=== PATIENT | male | born 1955 | race Caucasian/White ===

== ENCOUNTER → 2020-08-24 10:56 | Outpatient (CLI) | payer MEDICARE, SELFPAY ==
[2020-08-24 19:41] LABS: Add Manual Diff / Slide Review NO; Basophils Absolute Auto 0 /uL (0-100); Basophils Percent Auto 0.5 % (0-2); Eosinophils Absolute Auto 100 /uL (0-450); Eosinophils Percent Auto 1.8 % (2-4); Hematocrit 38.8 % (41-53); Hemoglobin 13.3 g/dL (13.5-17.5); Lymphocytes Absolute Auto 1400 /uL (1100-4500); Mean Corpuscular HGB Conc 34.3 % (30-36); Mean Corpuscular Hemoglobin 29.9 PG (26-34); Mean Corpuscular Volume 87.2 fL (80-100); Monocytes Absolute Auto 700 /uL (0-900); Monocytes Percent Auto 9.8 % (3-14); Neutrophils Absolute Auto 4600 /uL (1500-7000); Neutrophils Percent Auto 66.9 % (50-75); Platelet Count 145 X10^3/uL (150-400); Red Blood Cell Count 4.45 X10^6/uL (4.5-5.9); Red Cell Distribution Width 13.3 % (11.6-14.8); White Blood Cell Count 6.8 X10^3/uL (4.5-11.0)
[2020-08-24 20:08] LABS: Alanine Aminotransferase 22 IU/L (<50); Albumin 4.1 g/dL (3.5-5.0); Albumin Globulin Ratio 1.4 (1.0-2.8); Alkaline Phosphatase 59 U/L (38-126); Aspartate Aminotransferase 37 IU/L (17-59); BUN Creatinine Ratio 15.1 (6-22); Bilirubin Total 1.1 mg/dL (0.2-1.3); Blood Urea Nitrogen 16 mg/dL (9-20); Calcium 9.2 mg/dL (8.4-10.2); Carbon Dioxide 24 mmol/L (22-32); Chloride 107 mmol/L (98-107); Cholesterol 186 mg/dL (140-199); Estimated Glomerular Filt Rate > 60.0 mL/min (>60); Glucose 99 mg/dL (80-110); HDL Cholesterol 63 mg/dL (40-60); HEMOLYSIS < 15 (0-50); LDL Cholesterol Calculated 115 mg/dL (<100); Potassium 4.3 mmol/L (3.4-5.1); Sodium 138 mmol/L (137-145); Total Protein 7.1 g/dL (6.3-8.2); Triglycerides 38 mg/dL (35-150)
== END ==
PROVIDERS: PCP Family Medicine; Referring Provider Physician Assistant; Visit Provider Physician Assistant
DX: B18.2 Chronic viral hepatitis C (principal); R07.9 Chest pain, unspecified; Z12.5 Encounter for screening for malignant neoplasm of prostate; D49.2 Neoplasm of unspecified behavior of bone, soft tissue, and skin; K21.9 Gastro-esophageal reflux disease without esophagitis; N40.1 Benign prostatic hyperplasia with lower urinary tract symptoms; R35.1 Nocturia; Z13.220 Encounter for screening for lipoid disorders
CPT/HCPCS: 80053; 80061; 85025; G0103

== ENCOUNTER → 2020-09-07 12:41 | Outpatient (CLI) | payer MEDICARE, SELFPAY ==
[2020-09-07 20:13] LABS: Total Iron Binding Capacity 317 ug/dL (261-462)
[2020-09-07 20:38] LABS: Ferritin 112 ng/mL (18-464)
[2020-09-07 21:09] LABS: Folate > 20.0 ng/mL (2.76-20.0)
== END ==
PROVIDERS: PCP Family Medicine; Visit Provider Physician Assistant
DX: B18.2 Chronic viral hepatitis C (principal); D64.9 Anemia, unspecified
CPT/HCPCS: 82728; 82746; 83550

== ENCOUNTER 2021-07-07 10:35 | Emergency (ER) | payer MEDICARE, SELFPAY ==
[2021-07-07] VITALS (7 sets, daily range): BP systolic 105–140; BP diastolic 60–81; PULSE 56–66; RESP 15–20; TEMP 36.6–36.9; O2SAT 98–100; BMI 22.4
--- NOTE | 2021-07-07 10:47 | DI.RAD.S_ITS ---
PROCEDURE: XR CHEST 1V INDICATIONS: chest pain TECHNIQUE: One view of the chest was acquired. COMPARISON: [facility], , CHEST 1 VIEW, 12/02/2016, 19:13. FINDINGS: Surgical changes and devices: None. Lungs and pleura: Lungs are clear. No pleural effusions or pneumothorax. Mediastinum: Mediastinal contours appear normal. Heart size is normal. Bones and chest wall: No suspicious bony lesions. Overlying soft tissues appear unremarkable. IMPRESSION: No acute pulmonary process. Dictated by: Emy Valencia M.D. on 07/07/2021 at 11:37 Approved by: Emy Valencia M.D. on 07/07/2021 at 11:37
--- NOTE | 2021-07-07 11:00 | ED_ITS ---
HPI - Chest Pain General Chief Complaint: Chest Pain Stated Complaint: pain on left side of chest mild comes & go Time Seen by Provider: 07/07/21 10:41 Source: patient Mode of arrival: Ambulatory Limitations: no limitations Limitations: no limitations History of Present Illness HPI narrative: This is a 65-year-old male who presents with left-sided chest pain. Patient states he has had to 4 episodes daily for the last 3 days only 1 today that last for a few seconds he describes them as dull. He states he has chronic bilateral shoulder arthritis and pain which typically causes pain higher up in left, upper back and anterior chest but this was little lower he states the locations a li ttle bit different and usually gets a edema or sudden shock of pain and this is more of a dull discomfort. He denies any shortness of breath, no pleuritic pain. He has felt tired and generally unwell with some sweats and chills that are not associated with his chest discomfort. He has had some male nasal congestion. He denies any nausea or vomiting. He states he has had some irritation which has made him feel better. He states he was told he had an MRI in the past and that his diaphragm or something was pushing on the bottom of his heart. He has a sensation of fecal urgency at times but has not had any incontinence. This has not changed arm and new. He denies any urinary symptoms. Patient with had a remote history of hepatitis-C he went for treatment and states that he had cleared on his own and was never treated. He is on tamsulosin only for enlarged prostate. He has had tonsillectomy and wisdom tooth surgery. States allergy to penicillin but unknown cause. Quit tobacco 20 years ago as well as alcohol. Occasional THC until 5 days ago when he started feeling unwell. He has a remote history in his 18 to 19-year-old age range of using cocaine and injected drugs at this time he has not used since. Primary care is on [facility]. He has been taken aspirin 81 mg for the past 3 days. Related Data Previous Rx's Medication Instructions Recorded tamsulosin 0.4 mg capsule 0.4 mg PO BEDTIME #90 cap 11/06/20 Allergies Allergy/AdvReac Type Severity Reaction Status Date / Time Penicillins [PENICILLINS] Allergy Unknown Verified 08/09/20 14:28 Review of Systems Review of Systems ROS Unobtainable: All systems reviewed & are unremarkable except as noted in HPI and below Patient History Medical History Adenomatous polyp of transverse colon Alcoholism in remission BPH associated with nocturia Chronic hepatitis C without hepatic coma Social History Smoking Status: Never smoker Smoking Status: Never smoker Substance Use Type: marijuana Exam Narrative Exam Narrative: GENERAL: Alert and oriented x three, male in mild distress. HEENT: Head normocephalic, atraumatic, EOMI, pupils reactive, face symmetric, moist mucous membranes NECK: Supple, full range of motion CARDIOVASCULAR: Regular rate and rhythm without murmurs, rubs or gallops. RESPIRATORY: Breath sounds equal bilaterally, no wheezes rales or rhonchi. ABDOMEN: Soft, nontender. Normoactive bowel sounds all 4 quadrants. No guarding or rebound, rigidity, no mass : No CVA tenderness EXTREMITIES: Normal range of motion, no clubbing or edema. Neurovascularly intact NEUROLOGICAL: Cranial nerves II through XII grossly intact. Moving all extremit ies SKIN: Warm, dry, no petechiae, no rashes or lesions. Initial Vital Signs Initial Vital Signs: Vital Signs Temperature 97.8 F 07/07/21 10:35 Pulse Rate 66 07/07/21 10:35 Respiratory Rate 18 07/07/21 10:35 Blood Pressure 140/81 07/07/21 10:35 Pulse Oximetry 98 07/07/21 10:35 Scores HEART Score Heart Score history: Slightly Suspicious Heart Score EKG: Non-Specific repolarization disturbance Heart Score Age: > or = 65 years old Heart Score risk factors: No known risk factors Heart Score troponin: < or = to normal limit Heart Score Total: 3 Course Orders Ordered: ED Orders 07/07/21 10:47 XR chest 1V Stat EKG-12 Lead Stat 07/07/21 11:00 COVID19 -Nasal RAPID/Pre-Proc Stat Complete Blood Count AUTO DIFF Stat Comprehensive Metabolic Panel Stat Lipase Stat Magnesium Stat Troponin & CK Cardiac Panel Stat 07/07/21 13:16 Trop I [Troponin I] Stat Reevaluation(s) Reevaluation #1: Patient has not had any major changes. Occasional shoulder pain but not in his chest. He states it is a few seconds at the most. Reviewed his findings so far. He is COVID negative, EKG troponin was reviewed as well as his other labs. Plan for repeat troponin and EKG. Time: 12:55 Reevaluation #2: Recheck, reviewed all findings today. Recommendation for follow-up. If persistent symptoms patient should have stress testing but my suspicion for ACS or angina is low. Patient return precautions were discussed all questions answered. Time: 13:50 Vital Signs Vital signs: Vital Signs - 8 hr 07/07/21 12:00 07/07/21 12:30 07/07/21 14:01 Temperature 98.4 F Pulse Rate 61 56 L 65 Respiratory Rate 15 18 18 Blood Pressure 105/60 Pulse Oximetry 100 99 99 MDM - Chest Pain Lab Data Result diagrams: 07/07/21 11:00 07/07/21 11:00 Labs: Lab Results 07/07/21 07/07/21 07/07/21 Range/Units 11:00 11:00 11:00 WBC 6.8 (4.5-11.0) X10^3/uL RBC 3.89 L (4.5-5.9) X10^6/uL Hgb 11.7 L (13.5-17.5) g/dL Hct 33.3 L (41-53) % MCV 85.5 (80-100) fL MCH 30.1 (26-34) PG MCHC 35.2 (30-36) % RDW 13.5 (11.6-14.8) % Plt Count 179 (150-400) X10^3/uL Neut % (Auto) 71.0 (50-75) % Lymph % (Auto) 18.9 L (25-40) % Weston % (Auto) 8.8 (3-14) % Eos % (Auto) 0.6 L (2-4) % Baso % (Auto) 0.7 (0-2) % Neut # (Auto) 4800 (8432-3599) /uL Lymph # (Auto) 1300 (4826-0062) /uL Weston # (Auto) 600 (0-900) /uL Eos # (Auto) 0 (0-450) /uL Baso # (Auto) 0 (0-100) /uL Sodium 137 (137-145) mmol/L Potassium 3.8 (3.4-5.1) mmol/L Chloride 108 H (98-107) mmol/L Carbon Dioxide 20 L (22-32) mmol/L BUN 16 (9-20) mg/dL Creatinine 1.12 (0.66-1.25) mg/dL Estimated GFR > 60 (>60) mL/min BUN/Creatinine Ratio 14.3 (6-22) Glucose 106 (80-110) mg/dL Calcium 8.9 (8.4-10.2) mg/dL Magnesium 2.0 (1.6-2.3) mg/dL Total Bilirubin 1.0 (0.2-1.3) mg/dL AST 24 (17-59) IU/L ALT 17 (<50) IU/L Alkaline Phosphatase 63 (38-126) U/L Total Creatine Kinase 116 (55-170) U/L CK-MB (CK-2) 1.32 (<2.37) ng/mL CK-MB (CK-2) Rel Index 1.1 L (1.5-5.0) % Troponin I < 0.012 (0.01-0.034) ng/mL Total Protein 7.9 (6.3-8.2) g/dL Albumin 4.5 (3.5-5.0) g/dL Globulin 3.4 (1.7-4.1) g/dL Albumin/Globulin Ratio 1.3 (1.0-2.8) Lipase 55 (23-300) U/L SARS-CoV-2 (PCR) Negative (Negative) 07/07/21 Range/Units 13:16 WBC (4.5-11.0) X10^3/uL RBC (4.5-5.9) X10^6/uL Hgb (13.5-17.5) g/dL Hct (41-53) % MCV (80-100) fL MCH (26-34) PG MCHC (30-36) % RDW (11.6-14.8) % Plt Count (150-400) X10^3/uL Neut % (Auto) (50-75) % Lymph % (Auto) (25-40) % Weston % (Auto) (3-14) % Eos % (Auto) (2-4) % Baso % (Auto) (0-2) % Neut # (Auto) (8913-2779) /uL Lymph # (Auto) (8534-0059) /uL Weston # (Auto) (0-900) /uL Eos # (Auto) (0-450) /uL Baso # (Auto) (0-100) /uL Sodium (137-145) mmol/L Potassium (3.4-5.1) mmol/L Chloride (98-107) mmol/L Carbon Dioxide (22-32) mmol/L BUN (9-20) mg/dL Creatinine (0.66-1.25) mg/dL Estimated GFR (>60) mL/min BUN/Creatinine Ratio (6-22) Glucose (80-110) mg/dL Calcium (8.4-10.2) mg/dL Magnesium (1.6-2.3) mg/dL Total Bilirubin (0.2-1.3) mg/dL AST (17-59) IU/L ALT (<50) IU/L Alkaline Phosphatase (38-126) U/L Total Creatine Kinase (55-170) U/L CK-MB (CK-2) (<2.37) ng/mL CK-MB (CK-2) Rel Index (1.5-5.0) % Troponin I < 0.012 (0.01-0.034) ng/mL Total Protein (6.3-8.2) g/dL Albumin (3.5-5.0) g/dL Globulin (1.7-4.1) g/dL Albumin/Globulin Ratio (1.0-2.8) Lipase (23-300) U/L SARS-CoV-2 (PCR) (Negative) Imaging Data Chest x-ray: Radiologist's Impression: [address] [address] XRay Report Signed Patient: Ashok Miller MR#: [id number] : 1955 Acct:[id number] Age/Sex: 65 / M Date of Service: 07/07/21 Loc: ED Accession Number: [id number] ?? Procedure: XR chest 1V Ordering Provider: Yoana Hopkins D.O. PROCEDURE:? XR CHEST 1V ? INDICATIONS:? chest pain ? TECHNIQUE:? One view of the chest was acquired.? ? COMPARISON:? [facility], CR, CHEST 1 VIEW, 12/02/2016, 19:13. ? FINDINGS:? ? Surgical changes and devices:? None.? ? Lungs and pleura:? Lungs are clear.? No pleural effusions or pneumothorax.? ? Mediastinum:? Mediastinal contours appear normal.? Heart size is normal.? ? Bones and chest wall:? No suspicious bony lesions.? Overlying soft tissues appear unremarkable.? ? IMPRESSION:? No acute pulmonary process. ? ? Dictated by: Emy Valencia M.D. on 07/07/2021 at 11:37 ? ? Approved by: Emy Valencia M.D. on 07/07/2021 at 11:37? ECG Data Attestation: I personally reviewed and interpreted this ECG as follows: Prior ECG tracings: available for review Interpretation: Sinus bradycardia rate of 55 WI 166 QRS 88 QTC 386. Patient has prior from 12/02/2016. Patient's T-wave is flipped in lead 3 but QRS is the same. No other acute changes appreciated. EKG 2, sinus bradycardia left axis deviation, rate of 56, WI 170 QRS of 92 and QTC 407. No acute ST elevation or depression. MDM Narrative Medical decision making narrative: This is a 65-year-old male with atypical chest discomfort. Patient has also had some symptoms consistent with viral illness. COVID swab was sent, EKG appears similar to priors except for flipped T-wave in 3. Chest x-ray and labs show no acute changes with a negative troponin x2. Repeat EKG appears similar with no dynamic changes appreciated. Heart score is 3. Patient has had some viral like symptoms and there is quite a bit influenza currently. Patient was not tested today but discussed this may be a port of his symptoms as well. Discharge Plan Departure Patient Disposition: Home Clinical Impression: Atypical chest pain Instructions: DI for Atypical Chest Pain Activity Restrictions/Additional Instructions: Follow-up for recheck if symptoms are persisting. Your labs, EKG and imaging today do not show any major abnormalities your COVID swab is negative but there is quite a bit of influenza and there is a possibly that you have a viral illness causing your symptoms today. Please return for worsening chest, shortness of breath, diaphoresis, persistent vomiting, lightheadedness or passing out or other new or concerning symptoms. Prescriptions: No Action tamsulosin 0.4 mg capsule 0.4 mg PO BEDTIME Qty: 90 3RF Referrals: Sofía Lopez PA-C [Primary Care Provider] -
[2021-07-07 11:22] LABS: Add Manual Diff / Slide Review NO; Basophils Absolute Auto 0 /uL (0-100); Basophils Percent Auto 0.7 % (0-2); Eosinophils Absolute Auto 0 /uL (0-450); Eosinophils Percent Auto 0.6 % (2-4); Hematocrit 33.3 % (41-53); Hemoglobin 11.7 g/dL (13.5-17.5); Lymphocytes Absolute Auto 1300 /uL (1100-4500); Lymphocytes Percent Auto 18.9 % (25-40); Mean Corpuscular HGB Conc 35.2 % (30-36); Mean Corpuscular Hemoglobin 30.1 PG (26-34); Mean Corpuscular Volume 85.5 fL (80-100); Monocytes Absolute Auto 600 /uL (0-900); Monocytes Percent Auto 8.8 % (3-14); Neutrophils Absolute Auto 4800 /uL (1500-7000); Platelet Count 179 X10^3/uL (150-400); Red Blood Cell Count 3.89 X10^6/uL (4.5-5.9); Red Cell Distribution Width 13.5 % (11.6-14.8); White Blood Cell Count 6.8 X10^3/uL (4.5-11.0)
[2021-07-07 12:13] LABS: COVID19 -Nasal RAPID Negative (Negative)
[2021-07-07 12:18] LABS: Alanine Aminotransferase 17 IU/L (<50); Albumin 4.5 g/dL (3.5-5.0); Albumin Globulin Ratio 1.3 (1.0-2.8); Alkaline Phosphatase 63 U/L (38-126); Aspartate Aminotransferase 24 IU/L (17-59); BUN Creatinine Ratio 14.3 (6-22); Blood Urea Nitrogen 16 mg/dL (9-20); Calcium 8.9 mg/dL (8.4-10.2); Carbon Dioxide 20 mmol/L (22-32); Chloride 108 mmol/L (98-107); Creatine Kinase 116 U/L (55-170); Estimated Glomerular Filt Rate > 60 mL/min (>60); Globulin 3.4 g/dL (1.7-4.1); Glucose 106 mg/dL (80-110); HEMOLYSIS < 15 (0-50); Lipase 55 U/L (23-300); Potassium 3.8 mmol/L (3.4-5.1); Sodium 137 mmol/L (137-145); Total Protein 7.9 g/dL (6.3-8.2)
[2021-07-07 12:30] LABS: Troponin I < 0.012 ng/mL (0.01-0.034)
[2021-07-07 12:33] LABS: CKMB % Relative Index 1.1 % (1.5-5.0); Creatine Kinase MB 1.32 ng/mL (<2.37)
[2021-07-07 13:44] LABS: Troponin I < 0.012 ng/mL (0.01-0.034)
== END 2021-07-07 14:01 | disposition home or self-care (01) ==
PROVIDERS: Emergency Provider Emergency Medicine; PCP Physician Assistant
DX: R07.89 Other chest pain (principal); Z20.822 Contact with and (suspected) exposure to COVID-19
CPT/HCPCS: 36415; 71045; 80053; 82550; 82553; 83690; 83735; 84484; 85025; 87635; 93005; 99283; C9803

== ENCOUNTER → 2021-07-13 15:14 | Outpatient (CLI) | payer MEDICARE, SELFPAY ==
[2021-07-17 07:12] LABS: Fecal Immunochemical Test Negative (Negative)
== END ==
PROVIDERS: PCP Physician Assistant; Visit Provider Family Medicine
DX: D64.9 Anemia, unspecified (principal)
CPT/HCPCS: 82274

== ENCOUNTER → 2022-03-05 11:11 | Outpatient (CLI) | payer MEDICARE, SELFPAY ==
[2022-03-05 19:20] LABS: Add Manual Diff / Slide Review NO; Basophils Absolute Auto 100 /uL (0-100); Eosinophils Absolute Auto 100 /uL (0-450); Eosinophils Percent Auto 1.4 % (2-4); Hemoglobin 13.7 g/dL (13.5-17.5); Lymphocytes Absolute Auto 1500 /uL (1100-4500); Lymphocytes Percent Auto 23.5 % (25-40); Mean Corpuscular HGB Conc 34.2 % (30-36); Mean Corpuscular Hemoglobin 29.8 PG (26-34); Monocytes Absolute Auto 500 /uL (0-900); Neutrophils Absolute Auto 4100 /uL (1500-7000); Neutrophils Percent Auto 66.1 % (50-75); Platelet Count 142 X10^3/uL (150-400); Red Blood Cell Count 4.59 X10^6/uL (4.5-5.9); White Blood Cell Count 6.3 X10^3/uL (4.5-11.0)
[2022-03-05 19:23] LABS: Alanine Aminotransferase 16 IU/L (<50); Albumin 4.2 g/dL (3.5-5.0); Albumin Globulin Ratio 1.2 (1.0-2.8); Alkaline Phosphatase 57 U/L (38-126); Aspartate Aminotransferase 21 IU/L (17-59); BUN Creatinine Ratio 15.9 (6-22); Bilirubin Total 0.7 mg/dL (0.2-1.3); Blood Urea Nitrogen 17 mg/dL (9-20); Calcium 9.1 mg/dL (8.4-10.2); Carbon Dioxide 27 mmol/L (22-32); Chloride 104 mmol/L (98-107); Cholesterol 201 mg/dL (140-199); Estimated Glomerular Filt Rate > 60 mL/min (>60); Globulin 3.4 g/dL (1.7-4.1); Glucose 107 mg/dL (80-110); HDL Cholesterol 56 mg/dL (40-60); HEMOLYSIS < 15 (0-50); LDL Cholesterol Calculated 138 mg/dL (<100); Potassium 4.4 mmol/L (3.4-5.1); Sodium 140 mmol/L (137-145); Total Protein 7.6 g/dL (6.3-8.2); Triglycerides 37 mg/dL (35-150)
[2022-03-05 19:52] LABS: Prostate Specific Antigen Scrn 0.824 ng/mL (0.1-4.0)
== END ==
PROVIDERS: PCP Family Medicine; Visit Provider Family Medicine
DX: D64.9 Anemia, unspecified (principal); K21.9 Gastro-esophageal reflux disease without esophagitis; Z12.5 Encounter for screening for malignant neoplasm of prostate; B18.2 Chronic viral hepatitis C; Z13.1 Encounter for screening for diabetes mellitus; Z13.220 Encounter for screening for lipoid disorders; Z71.85 Encounter for immunization safety counseling; Z86.19 Personal history of other infectious and parasitic diseases
CPT/HCPCS: 80053; 80061; 85025; 87522; G0103

== ENCOUNTER → 2022-07-15 08:50 | Outpatient (CLI) | payer MEDICARE, SELFPAY ==
[2022-07-15 20:19] LABS: Cholesterol 192 mg/dL (140-199); HDL Cholesterol 62 mg/dL (40-60); Hematocrit 41.6 % (41-53); Hemoglobin 14.2 g/dL (13.5-17.5); LDL Cholesterol Calculated 121 mg/dL (<100); Mean Corpuscular HGB Conc 34.2 % (30-36); Mean Corpuscular Hemoglobin 29.9 PG (26-34); Mean Corpuscular Volume 87.4 fL (80-100); Platelet Count 224 X10^3/uL (150-400); Red Blood Cell Count 4.76 X10^6/uL (4.5-5.9); Red Cell Distribution Width 13.8 % (11.6-14.8); Triglycerides 43 mg/dL (35-150); White Blood Cell Count 6.6 X10^3/uL (4.5-11.0)
[2022-07-15 21:52] LABS: Add Manual Diff / Slide Review NO; Basophils Absolute Auto 100 /uL (0-100); Basophils Percent Auto 1.2 % (0-2); Eosinophils Absolute Auto 100 /uL (0-450); Eosinophils Percent Auto 2.1 % (2-4); Lymphocytes Absolute Auto 1600 /uL (1100-4500); Lymphocytes Percent Auto 24.3 % (25-40); Monocytes Absolute Auto 600 /uL (0-900); Monocytes Percent Auto 9.4 % (3-14); Neutrophils Absolute Auto 4200 /uL (1500-7000)
== END ==
PROVIDERS: PCP Family Medicine; Visit Provider Family Medicine
DX: D64.9 Anemia, unspecified (principal); E78.2 Mixed hyperlipidemia; D69.6 Thrombocytopenia, unspecified
CPT/HCPCS: 80061; 85025

== ENCOUNTER → 2022-09-16 10:34 | Outpatient (CLI) | payer MEDICARE, SELFPAY ==
[2022-09-16 19:47] LABS: Cholesterol 205 mg/dL (140-199); Glucose 107 mg/dL (80-110); HDL Cholesterol 56 mg/dL (40-60); LDL Cholesterol Calculated 141 mg/dL (<100); Triglycerides 39 mg/dL (35-150)
[2022-09-16 20:06] LABS: Prostate Specific Antigen Scrn 0.817 ng/mL (0.1-4.0)
[2022-09-16 20:27] LABS: Hep C Virus Ab w/Reflex Quant REACTIVE s/c (NEGATIVE)
== END ==
PROVIDERS: PCP Family Medicine; Visit Provider Family Medicine
DX: E78.2 Mixed hyperlipidemia (principal); Z12.5 Encounter for screening for malignant neoplasm of prostate; Z13.1 Encounter for screening for diabetes mellitus; Z11.59 Encounter for screening for other viral diseases; Z13.220 Encounter for screening for lipoid disorders
CPT/HCPCS: 80061; 82947; 86803; 87522; G0103

== ENCOUNTER 2022-11-21 09:56 | Day surgery (SDC) | payer MEDICARE, SELFPAY ==
--- NOTE | 2022-11-21 | PATH_ITS ---
[facility] Accession Number: [id number] No. of containers..03 Tissue . 01 Material submitted: . PART A: duodenum - DUODENUM PART B: duodenum bulb - DUODENAL BULB PART C: stomach - ANTRUM . 01 Diagnosis: A. Duodenum, Biopsy: Duodenal mucosa with patchy erosion. Negative for intraepithelial lymphocytosis. Negative for dysplasia and malignancy. . B. Duodenum Bulb, Biopsy: Duodenal mucosa with no diagnostic abnormality. Negative for active inflammation, features of sprue, dysplasia, or malignancy. . C. Stomach, Antrum, Biopsy: Antral mucosa with no significant diagnostic abnormality. Negative for Helicobacter by immunohistochemistry. Negative for intestinal metaplasia. Negative for dysplasia and malignancy. [facility] 11/26/2022 1452 Local . 01 Electronically signed: . Alem Amaro MD, Pathologist NPI- [id number] . 01 Gross description: . Part A: DUODENUM: Received in formalin is multiple fragment(s) of alcantara, soft tissue measuring 0.7 x 0.4 x 0.1 cm in aggregate submitted entirely in 1 cassette(s) Part B: DUODENAL BULB: Received in formalin is 1 fragment(s) of alcantara, soft tissue measuring 0.3 x 0.2 x 0.1 cm submitted entirely in 1 cassette(s) Part C: ANTRUM: Received in formalin is 1 fragment(s) of alcantara, soft tissue measuring 0.4 x 0.3 x 0.2 cm submitted entirely in 1 cassette(s) /AA 11/23/2022 0200 Local . 01 Microscopic: . C. An immunohistochemical stain was performed to evaluate for Helicobacter organisms and is negative. The control stain showed appropriate reactivity. . * This test was developed and its performance characteristics determined by [facility]. It has not been cleared or approved by the U.S. Food and Drug Administration. The FDA has determined that such clearance or approval is not necessary. This test is used for clinical purposes. It should not be regarded as investigational or for research. . 01 Pathologist provided ICD-10: R10.9 . 01 CPT . 211723, 384866, 813487, D47884 Specimen Comment: A courtesy copy of this report has been sent to [phone] Performed at: 01 [facility] [address] [place] [id number] MD Star Lu MD Phone: [phone]
--- NOTE | 2022-11-21 11:15 | PM.HP.1 ---
History of Present Illness History of Present Illness Date Patient Seen: 11/21/22 Time Patient Seen: 11:15 Chief complaint: SDC Narrative: Travis is a 67-year-old man who has dysphagia, occasional odynophagia and history of polyps. See the telephone encounter from September for details. [facility] Medical History Adenomatous polyp of transverse colon Alcoholism in remission BPH associated with nocturia Social History Smoking Status: Current every day smoker (THC Every day) Meds Home Medications and Allergies Home Medications Medication Instructions Recorded Confirmed Type tamsulosin 0.4 mg capsule 0.4 mg PO BEDTIME #90 caps 12/31/21 10/17/22 Rx sodium,potassium,mag sulfates 17.5 See Rx Instructions PO .COMPLEX 10/10/22 10/17/22 Rx gram-3.13 gram-1.6 gram oral soln #354 mL (Suprep Bowel Prep Kit) Allergies Allergy/AdvReac Type Severity Reaction Status Date / Time Penicillins [PENICILLINS] Allergy Unknown Verified 10/17/22 08:17 Exam Const General: healthy appearing Resp Effort & Inspection: normal respiratory effort Assessment & Plan Assessment and plan (1) History of colon polyps: Status: Acute (2) Dysphagia: Qualifiers: Dysphagia type: unspecified Qualified Code(s): R13.10 - Dysphagia, unspecified Status: Acute Plan Proceed with EGD and colonoscopy.
[2022-11-21] MEDS: LACTATED RINGERS 1,000 ML 100 ML IV (11:28)
[2022-11-21 11:29] VITALS: BP 139/78; PULSE 71; RESP 16; TEMP 36.7; O2SAT 100; BMI 23.1
--- NOTE | 2022-11-21 13:33 | PM.OP.EC ---
Operative Date/Time/Diagnoses Date of procedure: 11/21/22 Time of procedure: 13:33 Pre-op diagnosis: Dysphagia and history of polyps Post-op diagnosis: same Procedure & Clinicians Study performed: EGD and colonoscopy Same procedure as scheduled: Yes Surgeon: Kenneth Boyd Procedure Notes Procedure in detail: Surgeon: Kenneth Boyd MD Anesthesia: Richelle Deluca D.O. Procedure in detail: A timeout was performed. A bite blocked was placed and monitors were attached to the patient. The patient was positioned in the left lateral decubitus position. Sedation was administered. Once the patient was sedated the endoscope was inserted through the bite block and passed through the esophagus and stomach and into the duodenum. There were multiple small ulcers from the duodenal bulb to the second portion of the duodenum. Random biopsies were taken from the duodenal and the duodenal bulb. No active bleeding of any of the ulcers. We then withdrew the scope into the stomach. Took random biopsies from the antrum. The endoscope was retroflexed and no hiatal hernia was seen. The endoscope was straightned and withdrawn into the esophagus. There appeared to be a mild distal esophageal stricture and it was balloon dilated using the 12 mm balloon. We inflated to 3 atmospheres, 5 atmospheres and 8 atmospheres of pressure for 30 seconds each. There was minimal disruption of the mucosa at the conclusion. The rest of the esophagus was normal. Findings: Duodenal ulcers and mild distal esophageal stricture Next we repositioned the patient for a colonoscopy. A digital rectal exam was performed and was normal. The colonoscope was inserted and advanced to the cecum. The appendiceal orifice was identified and photographed. The scope was slowly withdrawn over greater than 6 minutes. The prep was fair. There was pandiverticulosis but no polyps were found and no biopsies were performed. The scope was retroflexed in the rectum and no other abnormalities were seen. Findings: Pandiverticulosis EBL: 5 mL Scope withdrawal time: 6 minute Sedation minutes: 25 minutes Post-procedure Disposition: PACU
[2022-11-21 13:36] VITALS: BP 126/75; PULSE 85; RESP 16; TEMP 36.5; O2SAT 98
[2022-11-21 13:41] VITALS: BP 125/75; PULSE 84; RESP 16; O2SAT 98
[2022-11-21 13:47] VITALS: BP 126/77; PULSE 76; RESP 16; TEMP 36.3; O2SAT 99
== END 2022-11-21 14:00 | disposition home or self-care (01) ==
PROVIDERS: PCP Family Medicine; Referring Provider Surgery; Visit Provider Surgery
PROC: 0DJ08ZZ Inspection of Upper Intestinal Tract, Via Natural or Artificial Opening Endoscopic (ICD-10-PCS; CPT 43235; principal; 2022-11-21 11:45)
PROC: 0DJD8ZZ Inspection of Lower Intestinal Tract, Via Natural or Artificial Opening Endoscopic (ICD-10-PCS; CPT 45378; 2022-11-21 11:45)
DX: Z12.11 Encounter for screening for malignant neoplasm of colon (principal); Z86.010 Personal history of colon polyps; R13.10 Dysphagia, unspecified; K57.30 Diverticulosis of large intestine without perforation or abscess without bleeding
CPT/HCPCS: 43249; G0105; J2704

== ENCOUNTER → 2023-02-19 11:52 | Outpatient (CLI) | payer MEDICARE, SELFPAY ==
[2023-02-19 19:31] LABS: Cholesterol 181 mg/dL (140-199); HDL Cholesterol 51 mg/dL (40-60); LDL Cholesterol Calculated 124 mg/dL (<100); Triglycerides 31 mg/dL (35-150)
== END ==
PROVIDERS: PCP Family Medicine; Visit Provider Family Medicine
DX: E78.2 Mixed hyperlipidemia (principal)
CPT/HCPCS: 80061

== ENCOUNTER → 2023-12-29 09:54 | Outpatient (CLI) | payer MEDICARE, SELFPAY ==
[2023-12-29 19:19] LABS: Add Manual Diff / Slide Review NO; Basophils Absolute Auto 0 /uL (0-100); Basophils Percent Auto 0.7 % (0-2); Eosinophils Absolute Auto 100 /uL (0-450); Eosinophils Percent Auto 1.7 % (2-4); Hematocrit 40.6 % (41-53); Hemoglobin 13.8 g/dL (13.5-17.5); Lymphocytes Absolute Auto 1400 /uL (1100-4500); Mean Corpuscular HGB Conc 33.9 % (30-36); Mean Corpuscular Hemoglobin 30.1 PG (26-34); Mean Corpuscular Volume 88.7 fL (80-100); Monocytes Absolute Auto 500 /uL (0-900); Monocytes Percent Auto 8.8 % (3-14); Neutrophils Absolute Auto 3700 /uL (1500-7000); Neutrophils Percent Auto 64.8 % (50-75); Platelet Count 149 X10^3/uL (150-400); Red Blood Cell Count 4.58 X10^6/uL (4.5-5.9); Red Cell Distribution Width 13.9 % (11.6-14.8); White Blood Cell Count 5.7 X10^3/uL (4.5-11.0)
[2023-12-29 19:39] LABS: BUN Creatinine Ratio 12.9 (6-22); Blood Urea Nitrogen 15 mg/dL (9-20); Calcium 9.1 mg/dL (8.4-10.2); Carbon Dioxide 23 mmol/L (22-32); Chloride 106 mmol/L (98-107); Cholesterol 192 mg/dL (140-199); Estimated Glomerular Filt Rate > 60 mL/min (>60); Glucose 112 mg/dL (80-110); HDL Cholesterol 57 mg/dL (40-60); HEMOLYSIS < 15 (0-50); LDL Cholesterol Calculated 127 mg/dL (<100); Potassium 4.3 mmol/L (3.4-5.1); Sodium 138 mmol/L (137-145); Triglycerides 41 mg/dL (35-150)
[2023-12-29 20:00] LABS: TSH w/ Reflex to FT4 0.89 uIU/mL (0.47-4.68)
[2023-12-29 20:06] LABS: Prostate Specific Antigen Scrn 1.32 ng/mL (0.1-4.0)
== END ==
PROVIDERS: PCP Family Medicine; Visit Provider Family Medicine
DX: R00.2 Palpitations (principal); E78.2 Mixed hyperlipidemia; Z12.5 Encounter for screening for malignant neoplasm of prostate; K21.9 Gastro-esophageal reflux disease without esophagitis; N40.1 Benign prostatic hyperplasia with lower urinary tract symptoms; R35.1 Nocturia; D69.6 Thrombocytopenia, unspecified
CPT/HCPCS: 80048; 80061; 84443; 85025; G0103

== ENCOUNTER → 2024-01-14 11:39 | Outpatient (CLI) | payer MEDICARE, SELFPAY ==
--- NOTE | 2024-01-14 11:41 | DI.CT.S_ITS ---
PROCEDURE: CT LUNG LOW DOSE SCREENING INDICATIONS: Lung cancer screening TECHNIQUE: Noncontrast 2.0-2.5 mm thick sections acquired from the pulmonary apices to the posterior costophrenic angles. 7 mm thick axial MIP, and 5 mm coronal and sagittal reformats were then acquired. For radiation dose reduction, the following was used: automated exposure control, adjustment of mA and/or kV according to patient size. COMPARISON: [facility], CT, CT KUB, 03/31/2019, 11:47. [facility], CR, XR CHEST 1V, 07/07/2021, 11:13. FINDINGS: Image quality: Diagnostic. Lower Neck: No enlarged lymph nodes. Thyroid: No thyroid nodules which require sonographic follow up, per consensus guidelines. Axillae: No enlarged lymph nodes. Chest Wall: Mild bilateral gynecomastia.. Bones: Visualized osseous structures appear intact without acute fracture or focal destructive lesion. No acute compression fractures of the imaged spine. Lungs and Pleura: No pneumothorax or pleural effusions. No consolidation or suspicious nodules. Heart: Heart size is normal. No pericardial effusion. Thoracic Vessels: The aorta and pulmonary arteries demonstrate normal size. Mediastinum and Radha: No enlarged lymph nodes. Esophagus: No wall thickening. No hiatal hernia. Upper Abdomen: Visualized upper abdomen solid organs and bowel loops appear normal. IMPRESSION: No suspicious pulmonary nodules. LUNG-RADS 1; continued annual screening, if eligible. Clinically Significant Non-pulmonary Findings: None. Dictated by: Aurelio Gould M.D. on 01/14/2024 at 16:00 Approved by: Aurelio Gould M.D. on 01/14/2024 at 16:04
== END ==
PROVIDERS: PCP Family Medicine; Referring Provider Family Medicine; Visit Provider Family Medicine
DX: F17.210 Nicotine dependence, cigarettes, uncomplicated (principal); Z12.2 Encounter for screening for malignant neoplasm of respiratory organs
CPT/HCPCS: 71271

== ENCOUNTER → 2024-03-11 10:38 | Outpatient (CLI) | payer MEDICARE, SELFPAY ==
--- NOTE | 2024-03-11 10:40 | DI.MRI.S_ITS ---
PROCEDURE: MR SHOULDER LT WO CON INDICATIONS: JOINT PAIN LEFT SHOULDER TECHNIQUE: Noncontrast oblique coronal T2 fast spin echo with fat saturation, oblique sagittal T1 spin echo and T2 fast spin echo with fat saturation, axial T1 spin echo and T2 fast spin echo with fat saturation through the shoulder. COMPARISON: [facility] ([place]), CR, XR SHOULDER LT MIN 2V, 12/12/2023, 14:36. FINDINGS: Image quality: Excellent. Rotator cuff: Full-thickness tearing of the supraspinatus tendon and the anterior fibers of the infraspinatus tendon measuring approximately 1.8 cm in anterior-posterior dimension with up to 2.1 cm of proximal tendon retraction. The teres minor tendon is intact. There is moderate subscapularis tendinosis. The rotator cuff musculature demonstrates preserved overall bulk and intrasubstance signal. Bones and bursae: No acute trabecular bone injury or fracture. Chronic traction cystic changes are seen at the posterior superior humeral head and the greater and lesser tuberosities near the rotator cuff tendon insertions. There is moderate partial-thickness cartilage irregularity in the glenohumeral joint with small marginal osteophytes. Krca-hr-fgwrafes degenerative changes at the acromioclavicular joint. Small amount of fluid in the subacromial/subdeltoid bursa communicates with the glenohumeral joint space. Capsule and soft tissues: Chronic appearing nondisplaced tearing of the superior and posterior superior labrum. There is partial intrasubstance tearing of the proximal biceps long head tendon superimposed on moderate to severe tendinosis. No tendon subluxation. The glenohumeral ligaments appear to be intact. IMPRESSION: 1. Full-thickness tearing of the supraspinatus tendon and the anterior fibers infraspinatus tendon at the distal insertions measuring 1.8 cm in anterior-posterior dimension with 2.1 cm of proximal tendon retraction. 2. Moderate subscapularis tendinosis. 3. Partial intrasubstance tearing of the proximal biceps long head tendon superimposed on moderate to severe tendinosis. 4. Chronic nondisplaced tearing of the superior to posterior superior labrum including the biceps anchor. 5. Grade 2-3 chondromalacia in the glenohumeral joint. 6. Vpis-qn-ffkwqywi acromioclavicular joint osteoarthrosis. 7. Small subacromial/subdeltoid bursal effusion communicates with the glenohumeral joint space. Approved by: Eduardo Castillo M.D. on 03/12/2024 at 11:10
== END ==
PROVIDERS: PCP Family Medicine; Referring Provider Orthopaedic Surgery; Visit Provider Orthopaedic Surgery
DX: M75.122 Complete rotator cuff tear or rupture of left shoulder, not specified as traumatic (principal); M25.512 Pain in left shoulder; S46.112A Strain of muscle, fascia and tendon of long head of biceps, left arm, initial encounter; S43.492A Other sprain of left shoulder joint, initial encounter; M19.012 Primary osteoarthritis, left shoulder; M94.212 Chondromalacia, left shoulder; M25.412 Effusion, left shoulder
CPT/HCPCS: 73221

== ENCOUNTER 2024-03-22 08:57 | Day surgery (SDC) | payer MEDICARE, SELFPAY ==
--- NOTE | 2024-03-22 | PATH_ITS ---
[facility] Accession Number: [id number] No. of containers..02 Tissue . 01 Material submitted: . PART A: colon - SIGMOID COLON POLYP PART B: rectum - RECTAL POLYP . 01 Diagnosis: Part A: SIGMOID COLON POLYP: Tubular adenoma. . Part B: RECTAL POLYP: Hyperplastic polyp. STO 03/23/20241815 Local . 01 Electronically signed: . Star Lu MD, Pathologist NPI- [id number] . 01 Gross description: . Part A: SIGMOID COLON POLYP: Received in formalin is 1 fragment(s) of alcantara, soft tissue measuring 0.7 x 0.4 x 0.3 cm submitted entirely in 1 cassette(s) . Part B: RECTAL POLYP: Received in formalin is 1 fragment(s) of alcantara, soft tissue measuring 0.5 x 0.4 x 0.3 cm submitted entirely in 1 cassette(s) /DANICA 03/23/20241815 Local . 01 Pathologist provided ICD-10: D12.5, K62.1 . 01 CPT . 799608, 539562 Specimen Comment: A courtesy copy of this report has been sent to [facility] Performed at: [address] [facility] [address], [place], [place] [id number] MD Star Lu MD Phone: [phone]
[2024-03-22 09:28] VITALS: BP 131/82; PULSE 60; RESP 16; TEMP 35.9; O2SAT 98
[2024-03-22] MEDS: LACTATED RINGERS 1,000 ML 42 ML IV (09:36)
--- NOTE | 2024-03-22 10:21 | P.HP_ITS ---
History of Present Illness History of Present Illness Date Patient Seen: 03/22/24 Time Patient Seen: 10:21 Chief complaint: SDC Narrative: 68-year-old white male with multiple tubular adenomas diverticulosis in the past. Was recommended 3 year follow-up after his 2017 colonoscopy, but he delayed follow-up due to pandemic. [facility] Medical History Alcoholism in remission BPH associated with nocturia Adenomatous polyp of transverse colon Social History Smoking Status: Current every day smoker alcohol intake: former Meds Home Medications and Allergies Home Medications Medication Instructions Recorded Confirmed Type tamsulosin 0.4 mg capsule 0.4 mg PO BEDTIME #90 caps 02/19/23 03/22/24 Rx alprazolam 0.25 mg tablet 0.25 mg PO DAILY PRN anxiety #14 12/19/23 03/22/24 Rx tabs sodium,potassium,mag sulfates 17.5 See Rx Instructions PO .COMPLEX 02/16/24 02/18/24 Rx gram-3.13 gram-1.6 gram oral soln #354 mL (Suprep Bowel Prep Kit) Allergies Allergy/AdvReac Type Severity Reaction Status Date / Time Penicillins [PENICILLINS] Allergy Unknown Verified 03/22/24 09:27 Review of Systems Review of Systems ROS: Yes All systems reviewed with the patient and are negative except as otherwise documented Exam Vital Signs (past 8 hours): - 03/22/24 09:28 Temperature 96.7 F L Pulse Rate 60 Respiratory Rate 16 Blood Pressure 131/82 Pulse Oximetry 98 Oxygen Delivery Method Room Air Oxygen Delivery Method Room Air Narrative Exam Narrative: Gen: NAD, sitting comfortably in bed, appears well HEENT: Sclera are anicteric, head is normocephalic and atraumatic, trachea is midline. CV: RRR, no JVD Resp: clear to auscultation bilaterally, equal chest wall movement bilaterally Abd: soft, nontender, normoactive bowel sounds Ext: no edema, full range of motion Neuro: Cranial nerves II-XII grossly intact, no focal deficits Skin: No erythema or ecchymosis Assessment & Plan Assessment and plan (1) History of colon polyps: Status: Acute Assessment & Plan narrative: Patient presents for colonoscopy Risks, benefits, alternatives to colonoscopy explained, including but not [place] ited to bowel perforation or other serious complication requiring surgery at less than 1 in 5000 colonoscopies, abdominal pain, cramping or bleeding and less than 1% of colonoscopies, and the chances that we find a diagnosis that would require further intervention of about 2%. Patient agrees to proceed. Time-Based Coding :: [TOTAL MINUTES] spent with patient and on the chart (including review of chart, obtaining history, exam, reviewing outside data, placing orders, documenting exam and treatment plan, and counseling patient) on [DATE]. [employer]EE [employer] Learning Developer Document charge(s): No
--- NOTE | 2024-03-22 10:45 | PM.OP.COLON ---
Operative Date/Time/Diagnoses Date of procedure: 03/22/24 Time of procedure: 10:45 Pre-op diagnosis: Personal history of polyps Post-op diagnosis: same Procedure & Clinicians Study performed: Colonoscopy with cold snare polypectomy x2 Same procedure as scheduled: Yes Indications: Personal history of polyps Surgeon: Yuval Carlos Procedure Notes SCOAP/Timeout: Performed Procedure in detail: Time-out was performed. Mac was induced. Patient was placed in left lateral decubitus position. The perineum was inspected without any gross abnormality. Lubricated pediatric colonoscope was inserted and advanced to the cecum. The terminal ileum was intubated. The colonoscope was withdrawn slowly inspecting the circumference of the colon. Small sessile polyps were noted in the sigmoid and rectum. They were removed completely with cold snare polypectomy and retrieved. Very small polyps may have been missed, prep quality was adequate. Retroflexed view of the rectum showed small, non prolapsed nonbleeding internal hemorrhoids. The scope was withdrawn the patient was taken to PACU in good condition. Scope withdrawal time: 12 Sedation minutes: 18 Findings: polyp(s) Specimen(s): other (1. Sigmoid polyp 2. Rectal polyp) Complications: none Impression: Polyps Post-procedure Recommendations: Colonoscopy in 5 years (Next colonoscopy in 7 years) Follow up: as needed Disposition: PACU
[2024-03-22 10:46] VITALS: BP 88/67; PULSE 74; RESP 18; TEMP 36.1; O2SAT 99
[2024-03-22 10:51] VITALS: BP 122/72; PULSE 69; RESP 16; O2SAT 99
[2024-03-22 10:56] VITALS: BP 126/78; PULSE 64; RESP 14; TEMP 36.9; O2SAT 99
[2024-03-22 10:58] VITALS: BP 134/73; PULSE 66; RESP 15; O2SAT 99
[2024-03-22 11:10] VITALS: BP 115/64; PULSE 71; RESP 14; O2SAT 98
== END 2024-03-22 11:19 | disposition home or self-care (01) ==
PROVIDERS: PCP Family Medicine; Referring Provider Surgery; Visit Provider Surgery
PROC: 0DJD8ZZ Inspection of Lower Intestinal Tract, Via Natural or Artificial Opening Endoscopic (ICD-10-PCS; CPT 45378; principal; 2024-03-22 10:15)
DX: Z12.11 Encounter for screening for malignant neoplasm of colon (principal); Z86.0100 Personal history of colon polyps, unspecified; K64.8 Other hemorrhoids; D12.5 Benign neoplasm of sigmoid colon; K62.1 Rectal polyp
CPT/HCPCS: 45385; J2704

== ENCOUNTER → 2024-05-26 10:01 | Outpatient (CLI) | payer MEDICARE, SELFPAY ==
[2024-05-26 18:50] LABS: Blood Urea Nitrogen 15 mg/dL (9-20); Calcium 9.1 mg/dL (8.4-10.2); Carbon Dioxide 26 mmol/L (22-32); Chloride 107 mmol/L (98-107); Estimated Glomerular Filt Rate > 60 mL/min (>60); Glucose 103 mg/dL (80-110); HEMOLYSIS 28 (0-50); Potassium 4.5 mmol/L (3.4-5.1); Sodium 139 mmol/L (137-145)
[2024-05-26 18:51] LABS: Add Manual Diff / Slide Review NO; Basophils Absolute Auto 100 /uL (0-100); Basophils Percent Auto 1.1 % (0-2); Cholesterol 206 mg/dL (140-199); Eosinophils Absolute Auto 100 /uL (0-450); Eosinophils Percent Auto 2.1 % (2-4); HDL Cholesterol 57 mg/dL (40-60); Hematocrit 41.7 % (41-53); Hemoglobin 14.4 g/dL (13.5-17.5); LDL Cholesterol Calculated 140 mg/dL (<100); Lymphocytes Absolute Auto 1500 /uL (1100-4500); Lymphocytes Percent Auto 22.6 % (25-40); Mean Corpuscular HGB Conc 34.5 % (30-36); Mean Corpuscular Hemoglobin 30.2 PG (26-34); Mean Corpuscular Volume 87.5 fL (80-100); Monocytes Absolute Auto 500 /uL (0-900); Monocytes Percent Auto 8.3 % (3-14); Neutrophils Absolute Auto 4300 /uL (1500-7000); Neutrophils Percent Auto 65.9 % (50-75); Platelet Count 168 X10^3/uL (150-400); Red Blood Cell Count 4.77 X10^6/uL (4.5-5.9); Triglycerides 43 mg/dL (35-150); White Blood Cell Count 6.6 X10^3/uL (4.5-11.0)
[2024-05-26 19:24] LABS: Prostate Specific Antigen Scrn 1.53 ng/mL (0.1-4.0)
== END ==
PROVIDERS: PCP Family Medicine; Visit Provider Physician Assistant Medical
DX: Z12.5 Encounter for screening for malignant neoplasm of prostate (principal); Z13.6 Encounter for screening for cardiovascular disorders; D69.6 Thrombocytopenia, unspecified; T78.40XA Allergy, unspecified, initial encounter; F17.210 Nicotine dependence, cigarettes, uncomplicated; E78.2 Mixed hyperlipidemia
CPT/HCPCS: 80048; 80061; 82785; 85025; 86003; G0103